=== PATIENT | female | born 1990 | race Two or more races ===

== ENCOUNTER 2017-08-22 14:12 | Emergency (ER) | payer MEDICAID ==
[~2017-08-22] VITALS: Ht 149.9 cm; Wt 64.4 kg
[2017-08-22 17:09] VITALS: BP 118/67
== END 2017-08-22 17:12 | disposition home or self-care (01) ==
LOC: ER 14:12
DX: J20.9 Acute bronchitis, unspecified (principal); Q90.9 Down syndrome, unspecified; Z88.0 Allergy status to penicillin
CPT/HCPCS: 71046